=== PATIENT | male | born 1990 | race Two or more races ===

== ENCOUNTER 2024-11-12 13:15 | Emergency (ER) | payer OTHER ==
[2024-11-12 13:20] VITALS: RESP 18; BMI 24.0
[2024-11-12] MEDS ORDERED: ONDANSETRON 4 MG/2 ML VIAL ONE (15:05)
[2024-11-12] MEDS ORDERED: KETOROLAC TROMETHAMINE 30 MG/1 ML VIAL ONE (15:05)
[2024-11-12] MEDS: ONDANSETRON 4 MG/2 ML VIAL IVPUSH ONE (15:14)
[2024-11-12] MEDS: KETOROLAC TROMETHAMINE 30 MG/1 ML VIAL IVPUSH ONE (15:16)
[2024-11-12] MEDS: SODIUM CHLORIDE 0.9% 1000 ML INFUS.BAG IV ONE (15:18)
[2024-11-12 15:37] LABS: ABSOLUTE IMMATURE GRANULOCYTES 0.03 x10^3/uL (0.0-0.031); BASOPHILS # 0.02 x10^3/uL (0.01-0.08); EOSINOPHIL % 0.7 % (0.8-7.0); EOSINOPHILS # 0.06 x10^3/uL (0.04-0.54); MCHC 33.9 g/dl (32.3-36.5); MEAN CELL VOLUME 87.5 fl (79.0-92.2); MEAN PLT VOLUME 10.3 fl (9.4-12.4); MONOCYTE # 0.63 x10^3/uL (0.30-0.82); MONOCYTE % 6.9 % (5.3-12.2); RDW 12.5 % (12.0-15.6)
[2024-11-12 15:48] LABS: GLUCOSE,RANDOM 99.0 mg/dL (74-106); TOT PROT 7.3 g/dl (6.4-8.2)
[2024-11-12 15:49] LABS: CO2 25.0 mmol/L (21-32)
[2024-11-12 15:50] LABS: ALK PHOS 65.0 U/L (40-150)
[2024-11-12 15:53] LABS: CREATININE 0.91 mg/dL (0.55-1.3); SGOT/AST 27.0 U/L (5-34); SGPT/ALT 48.0 U/L (0-55)
[2024-11-12] MEDS ORDERED: AZITHROMYCIN 500 MG TABLET ONE (17:13)
[2024-11-12] MEDS ORDERED: FAMOTIDINE 20 MG TABLET ONE (17:13)
[2024-11-12] MEDS: FAMOTIDINE 20 MG TABLET PO ONE (17:24)
[2024-11-12] MEDS: AZITHROMYCIN 250 MG TABLET PO ONE (17:24)
[2024-11-12 17:33] VITALS: BP 117/68; PULSE 69; TEMP 98.4
== END 2024-11-12 17:40 | disposition home or self-care (01) ==
LOC: JER 13:15
PROC: 3E0333Z Introduction of Anti-inflammatory into Peripheral Vein, Percutaneous Approach (ICD-10-PCS; principal; 2024-11-12)
PROC: 3E033GC Introduction of Other Therapeutic Substance into Peripheral Vein, Percutaneous Approach (ICD-10-PCS; 2024-11-12)
DX: R19.7 Diarrhea, unspecified (principal); R10.13 Epigastric pain; R11.2 Nausea with vomiting, unspecified
CPT/HCPCS: 36415; 80053; 85025; 87045; 87046; 99284-25